=== PATIENT | female | born 1980 | race Caucasian/White ===

== ENCOUNTER 2018-03-24 13:14 | Emergency (ER) | payer MEDICAID ==
[~2018-03-24] VITALS: Ht 167.6 cm; Wt 123.0 kg
[2018-03-24 15:25] LABS: BASOPHILS % 0.2 % (0.0-2.0); EOSINOPHILS % 0.4 % (0.0-5.0); HEMATOCRIT. 39.1 % (36.0-48.0); LYMPHOCYTES % 12.2 % (20.0-50.0); MEAN CORPUSCULAR HEMOGLOBIN 29.5 pg (28.0-32.0); MEAN PLATELET VOLUME 7.7 fl (7.4-10.4); NEUTROPHILS % 83.2 % (40.0-76.0); PLATELET 344 x1000/uL (130-400); RED CELL DISTRIBUTION WIDTH 14.1 % (11.6-14.6)
[2018-03-24 15:35] LABS: CHLORIDE 107 mEq/L (98-107)
[2018-03-24 15:51] LABS: HCG SCREEN NEGATIVE
[2018-03-24 17:10] VITALS: BP 117/83
== END 2018-03-24 17:10 | disposition home or self-care (01) ==
LOC: ER 13:55
DX: R55 Syncope and collapse (principal); R53.1 Weakness; J02.9 Acute pharyngitis, unspecified
CPT/HCPCS: 36415; 71045; 84484; 84703; 93005; 99285